=== PATIENT | female | born 1985 | race American Indian/Alaskan Native ===

== ENCOUNTER 2017-02-13 16:04 | Emergency (ER) | payer MEDICAID, OTHER ==
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
== END 2017-02-13 17:06 | disposition home or self-care (01) ==
LOC: CC.ED 16:04
CPT/HCPCS: 99283